=== PATIENT | female | born 1990 | race Caucasian/White ===

== ENCOUNTER 2019-05-13 04:53 | Emergency (ER) | payer OTHER ==
[~2019-05-13] VITALS: Ht 157.5 cm; Wt 77.3 kg
[2019-05-13 05:00] VITALS: Ht 157.5 cm; Wt 77.3 kg
[2019-05-13 05:37] LABS: BASOPHILS 0.6 % (0-2); EOSINOPHILS 1.4 % (0-7); HEMATOCRIT 45.6 % (36.0-48.0); IMMATURE GRANULOCYTES 0.3 % (0-5); LYMPHOCYTES 28.9 % (15-50); MCHC 35.1 g/dL (31.0-37.0); MCV 88.4 fL (80.0-100.0); MONOCYTES 7.2 % (2-11); NEUTROPHILS 61.6 % (40-80); PLATELET COUNT 330 10x3/uL (130-400); RBC 5.16 10x6/uL (4.00-5.40); RDW 12.9 % (11.5-14.5); WBC 11.9 10x3/uL (4.8-10.8)
[2019-05-13 05:56] LABS: CALC OSMOLALITY 283 mosm/kg (275-300); CALCIUM 9.2 mg/dL (8.5-10.1); CARBON DIOXIDE 27.7 mmol/L (21.0-32.0); CHLORIDE - SERUM 105 mmol/L (98-107); CREATININE - SERUM 1.1 mg/dL (0.6-1.3); GLUCOSE 190 mg/dL (74-106); POTASSIUM - SERUM 3.6 mmol/L (3.5-5.1); SODIUM 141 mmol/L (136-145); UREA NITROGEN 8 mg/dL (7-18); eGFR NON AFRICAN AMERICAN 63 mL/min (90-120)
[2019-05-13 06:04] LABS: HCG SERUM NEGATIVE (NEGATIVE)
[2019-05-13 06:11] LABS: ALBUMIN 3.9 g/dL (3.4-5.0); ALKALINE PHOSPHATASE 87 U/L (46-116); ALT (SGPT) 62 U/L (10-68); CKMB 0.7 U/L (0.0-3.6); CREATINE KINASE 191 UL (21-215); MAGNESIUM - SERUM 1.8 mg/dL (1.8-2.4); THYROID STIMULATING HORMONE 3.58 uIU/mL (0.36-3.74); TROPONIN-I < 0.017 ng/mL (0.000-0.060)
[2019-05-13 06:44] LABS: APPEARANCE CLEAR (CLEAR); BILIRUBIN NEGATIVE (NEGATIVE); COLOR STRAW (YELLOW); GLUCOSE NEGATIVE (NEGATIVE); KETONE NEGATIVE (NEGATIVE); NITRITE NEGATIVE (NEGATIVE); PROTEIN NEGATIVE (NEGATIVE); SPECIFIC GRAVITY 1.005 (1.005-1.020); UROBILINOGEN NORMAL (NORMAL)
[2019-05-13 06:47] VITALS: BP 122/80
== END 2019-05-13 06:47 | disposition home or self-care (01) ==
LOC: D.ER 04:53
PROVIDERS: Family Medicine
DX: F41.9 Anxiety disorder, unspecified (principal)

== ENCOUNTER 2019-07-16 14:06 | Emergency (ER) | payer OTHER ==
[2019-07-16 14:53] VITALS: Ht 157.5 cm
[2019-07-16] MEDS ORDERED: FLUVOXAMINE MA100 M1 PO (14:55)
[2019-07-16] MEDS ORDERED: ABILIFY2 MG PO (14:55)
[2019-07-16 15:41] LABS: BASOPHILS 0.5 % (0-2); EOSINOPHILS 0.7 % (0-7); HEMOGLOBIN 15.6 g/dL (12-16); IMMATURE GRANULOCYTES 0.4 % (0-5); LYMPHOCYTES 24.9 % (15-50); MCHC 35.5 g/dL (31.0-37.0); MCV 87.3 fL (80.0-100.0); MEAN PLATELET VOLUME 10.6 fL (7.4-10.4); MONOCYTES 7.8 % (2-11); NEUTROPHILS 65.7 % (40-80); PLATELET COUNT 368 10x3/uL (130-400); RBC 5.04 10x6/uL (4.00-5.40); RDW 12.8 % (11.5-14.5); WBC 13.1 10x3/uL (4.8-10.8)
[2019-07-16 15:48] LABS: APTT 30.5 SECONDS (22.8-39.4); CALC OSMOLALITY 277 mosm/kg (275-300); CARBON DIOXIDE 29.6 mmol/L (21.0-32.0); CHLORIDE - SERUM 104 mmol/L (98-107); CREATININE - SERUM 0.8 mg/dL (0.6-1.3); GLUCOSE 104 mg/dL (74-106); INR 0.99 (0.85-1.17); POTASSIUM - SERUM 3.9 mmol/L (3.5-5.1); SODIUM 140 mmol/L (136-145); UREA NITROGEN 9 mg/dL (7-18); eGFR NON AFRICAN AMERICAN 90 mL/min (90-120)
[2019-07-16 16:05] LABS: ALKALINE PHOSPHATASE 77 U/L (30-120); ALT (SGPT) 57 U/L (10-68); BILIRUBIN - TOTAL 0.47 mg/dL (0.2-1.3); CKMB 0.8 U/L (0.0-3.6); CREATINE KINASE 158 UL (21-215); MAGNESIUM - SERUM 1.9 mg/dL (1.8-2.4)
[2019-07-16 16:06] LABS: TROPONIN-I < 0.017 ng/mL (0.000-0.060)
[2019-07-16 19:15] LABS: CKMB 0.7 U/L (0.0-3.6); CREATINE KINASE 149 UL (21-215)
[2019-07-16 19:17] LABS: TROPONIN-I < 0.017 ng/mL (0.000-0.060)
[2019-07-16 19:51] VITALS: BP 122/72
== END 2019-07-16 19:52 | disposition home or self-care (01) ==
LOC: D.ER 14:06
PROVIDERS: Family Medicine
DX: R07.9 Chest pain, unspecified (principal); D72.829 Elevated white blood cell count, unspecified; J45.909 Unspecified asthma, uncomplicated

== ENCOUNTER → 2020-01-19 13:04 | Outpatient (CLI) | payer OTHER ==
[~2020-01-19 13:04] MED LIST: ABILIFY2 MG PO; FLUVOXAMINE MA100 M1 PO
== END | disposition home or self-care (01) ==
LOC: D.HCCECHO 13:04
PROVIDERS: ATTEND Internal Medicine Cardiovascular Disease
DX: R07.9 Chest pain, unspecified (principal); I48.92 Unspecified atrial flutter

== ENCOUNTER → 2020-01-26 10:19 | Outpatient (CLI) | payer OTHER | END | disposition home or self-care (01) | LOC: D.HCCARDIO 10:19 | PROVIDERS: ATTEND Internal Medicine Cardiovascular Disease | DX: R94.30 Abnormal result of cardiovascular function study, unspecified (principal) ==